=== PATIENT | female | born 1970 | race Caucasian/White ===

== ENCOUNTER → 2016-06-30 | Outpatient (CLI) | payer BC ==
[~2016-06-30] MED LIST: ACET-1256 PO; ALBU1AER9 INH; CLON0.5T3 PO; FLUO0.05 TOP; MULT-506 PO; OMEG10007 PO; SODITAB PO
--- NOTE | 2016-06-30 16:25 | MAMMOGRAPHY REPORT ---
BILATERAL DIGITAL SCREENING MAMMOGRAM TOMOSYNTHESIS WITH CAD: 06/30/2016 CLINICAL HISTORY: Routine screening. Patient has no complaints. TECHNIQUE: Breast tomosynthesis in addition to standard 2D mammography was performed. Current study was also evaluated with a Computer Aided Detection (CAD) system. COMPARISON: Comparison is made to exams dated: 06/27/2015 mammogram, 07/12/2014 mammogram, 06/26/2014 m ammogram, 07/05/2013 mammogram, 06/24/2013 mammogram, and 06/23/2012 mammogram - [facility] nt. BREAST COMPOSITION: The tissue of both breasts is heterogeneously dense, which may obscure small ma sses. FINDINGS: No suspicious masses, calcifications, or areas of architectural distortion are noted in e ither breast. There has been no significant interval change compared to prior exams. There are fluc tuating circumscribed masses throughout the left breast, most likely fluctuating cysts given that cy sts have been seen on prior ultrasound exams. Bilateral benign-appearing calcifications are not sig nificantly changed. IMPRESSION: ACR BI-RADS CATEGORY 2: BENIGN There is no mammographic evidence of malignancy. A 1 year screening mammogram is recommended. The p atient will receive written notification of the results. Approximately 10% of breast cancers are not detected with mammography. A negative mammographic repor t should not delay biopsy if a clinically suggestive mass is present. Rica Choudhury M.D. /:06/30/2016 14:56:55 Pretzel Twisting Machine Operator: Melissa Santamaria, [facility] letter sent: Normal 1/2 BI-RADS Code: ACR BI-RADS Category 2: Benign
== END | disposition home or self-care (01) ==
LOC: C.MAMM 08:42
PROVIDERS: ATTEND Obstetrics & Gynecology
DX: Z12.31 Encounter for screening mammogram for malignant neoplasm of breast (principal)

== ENCOUNTER → 2017-07-01 | Outpatient (CLI) | payer OTHER ==
[~2017-07-01] MED LIST changes: +FLUO0.0566 TOP
--- NOTE | 2017-07-01 15:21 | MAMMOGRAPHY REPORT ---
BILATERAL DIGITAL SCREENING MAMMOGRAM TOMOSYNTHESIS WITH CAD: 07/01/2017 CLINICAL HISTORY: Routine screening. Patient reported a new lump in the left breast that she noticed approximately 3 weeks ago. A triangle marker was placed overlying this palpable concern prior to ma mmography. TECHNIQUE: Bilateral breast tomosynthesis in addition to standard 2D mammography was performed. Curr ent study was also evaluated with a Computer Aided Detection (CAD) system. COMPARISON: Comparison is made to exams dated: 06/27/2015 mammogram, 07/12/2014 mammogram, 06/26/2014 ma mmogram, 07/05/2013 ultrasound, 07/05/2013 mammogram, and 06/23/2012 mammogram - [facility] nter. BREAST COMPOSITION: The tissue of both breasts is heterogeneously dense, which may obscure small mas ses. FINDINGS: A tracheal marker overlies the 6:00 middle to anterior left breast, denoting the palpable lump pointed out by the patient. There is nodularity in the area of concern and therefore additional spot compression tomosynthesis views and possible ultrasound are recommended. A second nodular asym metry is identified in the superior posterior left breast on the MLO view, measuring 8.7 mm. Additio nal spot compression tomosynthesis views, including an exaggerated lateral CC view with possible ultr asound are also recommended for this second area. There are stable benign-appearing scattered and grouped calcifications in the right breast. No other suspicious masses, new calcifications, areas of architectural distortion or asymmetries are seen. IMPRESSION: ACR BI-RADS CATEGORY 0: INCOMPLETE EVALUATION: NEED ADDITIONAL IMAGING EVALUATION The palpable concern in the 6:00 left breast and nodular asymmetry in the superior posterior left fidel ast need additional imaging evaluation. The patient will be called to schedule an appointment. Approximately 10% of breast cancers are not detected with mammography. A negative mammographic report should not delay biopsy if a clinically suggestive mass is present. Jade Rob M.D. ay/:07/01/2017 11:10:26 Garment Mender: Keiry QUILES)(Lauren), [facility] letter sent: Addl Imaging 0 BI-RADS Code: ACR BI-RADS Category 0: Incomplete Evaluation: Need Additional Imaging Evaluation
== END | disposition home or self-care (01) ==
LOC: C.MAMM 08:38
PROVIDERS: ATTEND Obstetrics & Gynecology
DX: Z12.31 Encounter for screening mammogram for malignant neoplasm of breast (principal); N64.89 Other specified disorders of breast

== ENCOUNTER → 2017-07-06 | Outpatient (CLI) | payer OTHER ==
[~2017-07-06] MED LIST changes: -FLUO0.0566 TOP
--- NOTE | 2017-07-07 15:24 | MAMMOGRAPHY REPORT ---
UNILATERAL LEFT DIGITAL DIAGNOSTIC MAMMOGRAM TOMOSYNTHESIS AND TARGETED LEFT ULTRASOUND: 07/06/2017 CLINICAL HISTORY: 46-year-old woman called back from recent screening mammogram to further assess for a newly reported palpable lump in the 6:00 left breast, and also for a newly visualized nodular asym metry in the superior posterior left breast on the MLO view. TECHNIQUE: Spot compression left CC and MLO 2-D and tomosynthesis images were obtained. COMPARISON: Comparison is made to exams dated: 07/01/2017 mammogram, 06/30/2016 mammogram, 06/27/2015 m ammogram, 06/26/2014 mammogram, 06/24/2013 mammogram, and 06/23/2012 mammogram - [facility]. BREAST COMPOSITION: The tissue of the left breast is heterogeneously dense, which may obscure small masses. FINDINGS: The additional spot compression views of the left breast demonstrate a persistent partiall y circumscribed, 6.6 x 6.4 mm mass in the upper outer posterior left breast. No associated net application architect ural distortion or calcification. Further evaluation with ultrasound was performed. There is nodula rity in the medial left breast approximate 8:00 to 9:00 axes, for which further evaluation with ultra sound was performed. No other definite mass, focal area of architectural distortion or asymmetry is seen. Targeted ultrasound was performed in the left breast with particular attention to the area of lump po inted out by the patient, the left lower inner quadrant and left upper outer quadrant. Today, the pa tient reports the lump has decreased in size and is less prominent than when she first noticed it dillon roximately 3 weeks ago. On ultrasound in the 6:00 periareolar left breast in the area of prior edy rn, there is an oval parallel circumscribed nearly anechoic cystic appearing mass measuring 3.3 x 2.1 mm. This most likely represent a collapsing cyst, which could explain the less prominent nature of the patient's palpable concern. A grouping of several cysts are identified in the 9:00 left breast, 2 cm from the nipple, the largest of which measures 3 mm. No suspicious solid mass is identified. I n the 1:00 left breast, 8 cm from the nipple, there is an oval parallel circumscribed anechoic benign simple cyst with posterior acoustic enhancement, measuring 7.0 x 4.1 x 7.2 mm. This correlates with the mammographic nodular asymmetry and is benign. Incidentally seen while scanning the left upper o uter quadrant is a possible collapsing cyst in the 2:00 axis, 2 cm from the nipple, measuring 3.2 x 3 .1 x 4.4 mm. However this does not have completely circumscribed borders and therefore a short inter jeanette follow-up targeted ultrasound is recommended to ensure stability in 6 months. IMPRESSION: ACR-BI-RADS CATEGORY 3: PROBABLY BENIGN, TARGETED ULTRASOUND ACR-BI-RADS CATEGORY 3: PRO BABLY BENIGN 1. There are scattered cysts seen throughout the left breast on targeted ultrasound. A probable col lapsing cyst is identified in the 6:00 periareolar breast, which is located in the area of previously noted palpable lump pointed out by the patient. However, continued clinical follow-up is recommende d, as biopsy of a clinically suspicious mass should not be precluded by negative imaging. This area can also be reassessed at time of follow-up in 6 months. 2. There are scattered cysts compatible with fibrocystic changes most numerous in the 9:[address] and upper outer quadrant of the left breast. A benign anechoic simple cysts correlates with the m ammographic nodular asymmetry in the left upper outer quadrant posteriorly. This is benign and no fu rther follow-up is needed. 3. However, incidentally identified is an indeterminate hypoechoic mass in the 2:00 left breast, 2 c m from the nipple, that probably represents an additional collapsing cyst, although does not meet all of the imaging criteria for a benign simple cyst. Therefore, a short interval follow-up targeted le ft breast ultrasound and diagnostic tomosynthesis mammogram is recommended to ensure stability in 6 m onths. These results and recommendations were discussed with the patient at the time of the exam. Approximately 10% of breast cancers are not detected with mammography. A negative mammographic report should not delay biopsy if a clinically suggestive mass is present. Jade Rob M.D. ay/:07/06/2017 15:32:44 Professor Of Biostatistics: Abida Lozada RT(Jacqueline)(M), [facility] letter sent: Follow Up Recommended 3 BI-RADS Code: ACR-BI-RADS Category 3: Probably Benign Ultrasound BI-RADS: ACR-BI-RADS Category 3: Pr obably Benign
== END | disposition home or self-care (01) ==
LOC: C.MAMM 13:50
PROVIDERS: ATTEND Obstetrics & Gynecology
DX: N60.02 Solitary cyst of left breast (principal); N64.89 Other specified disorders of breast

== ENCOUNTER → 2017-09-09 | Day surgery (SDC) | payer OTHER ==
[2017-08-27 08:28] VITALS: BMI 22.0
[~2017-09-09] VITALS: Ht 167.6 cm; Wt 62.7 kg
[~2017-09-09] MED LIST changes: -ACET-1256 PO; -ALBU1AER9 INH; -CLON0.5T3 PO; +DiphenhydrAMINE HCL 50 MG/ML VIAL ONE; -FLUO0.05 TOP; +FLUO0.0566 TOP; +LIDOCAINE HCL 2% 2 ML VIAL (20MG/ML) ONE; +ONDANSETRON INJ 2 MG/ML 2 ML VIAL ONE; +PROPOFOL IV EMULSION 10 MG/ML 20 ML VIAL IV ONE; -SODITAB PO; +SODIUM CHLORIDE 0.9% 500ML 500 ML IV ONE
[2017-09-09 14:38] VITALS: Ht 167.6 cm; Wt 62.7 kg
--- NOTE | 2017-09-09 14:53 | Endo History and Physical ---
History & Physical Date of Service: Sep 09, 2017. Chief Complaint: BLOOD IN STOOL Referring Physician: DR ALICEA History of Present Illness 46 yo CF who presents for colonoscopy secondary to blood in stool. Past Medical History Asthma Past Surgical History Hx Cardiac Surgery: No Hx Internal Defibrillator: No Hx Pacemaker: No Hx Abdominal Surgery: Yes (HYSTERECTOMY) Hx of Implantable Prosthesis: No Hx Post-Op Nausea and Vomiting: Yes (SEVERE PONV) Hx Cancer Surgery: No Hx Thoracic Surgery: No Hx Orthopedic: Yes (LEFT SHOULDER RECONSTRUCTION, RT SHOULDER/KNEE ARTHROSCOPY) Hx Urinary Tract Surgery: No Family History IBD Social History Smoking Status: Never Smoker Hx Substance Use: No Hx Alcohol Use: No Allergies Coded Allergies: Venlafaxine (Verified Allergy, Unknown, HEART ARRYHTHMIA, 09/09/17) Serotonin Reuptake Inhibitors (Verified Adverse Reaction, Unknown, SEROTONIN SYNDROME, 08/27/17) Current Medications Reported Home Medications Medications Dose Route/Sig Max Daily Dose Days Date Category [place]-3 (Fish Oil) 1 Ea Cap 1 Cap PO DAILY 08/27/17 Reported Multivitamin (Multivitamins) Tab 1 Tab PO DAILY 08/27/17 Reported Fluocinonide 0.05 % Sharla 1 Appln TOP DAILY PRN 08/27/17 Reported Vital Signs Weight (Kilograms): 62.73 Height (Feet): 5 Height (Inches): 6 Date Time Temp Pulse Resp B/P (MAP) Pulse Ox O2 Delivery O2 Flow Rate FiO2 09/09/17 14:37 36.8 64 20 101/58 (72) 100 Room Air Physical Exam General Appearance: WD/WN, no apparent distress Respiratory/Chest: Auscultation: breath sounds normal Cardiovascular: Heart Auscultation: RRR Abdomen: Bowel Sounds: normal Inspection & Palpation: soft, non-distended, no tenderness, guarding & rebound Assessment and Plan Assessment: 46 yo CF who presents for colonoscopy secondary to blood in stool. Plan: Proceed with colonoscopy.
--- NOTE | 2017-09-09 16:11 | Discharge Instructions ---
Endoscopy Patient Instructions Date / Procedure(s) Performed Sep 09, 2017. Colonoscopy Allergy Information Coded Allergies: Venlafaxine (Verified Allergy, Unknown, HEART ARRYHTHMIA, 09/09/17) Serotonin Reuptake Inhibitors (Verified Adverse Reaction, Unknown, SEROTONIN SYNDROME, 08/27/17) Discharge Date / Findings Sep 09, 2017. Colon polyps Internal hemorrhoids Medication Instructions OK to resume all medications today as prescribed Reported Home Medications Medications Dose Route/Sig Max Daily Dose Days Date Category [place]-3 (Fish Oil) 1 Ea Cap 1 Cap PO DAILY 08/27/17 Reported Multivitamin (Multivitamins) Tab 1 Tab PO DAILY 08/27/17 Reported Fluocinonide 0.05 % Sharla 1 Appln TOP DAILY PRN 08/27/17 Reported Provider Instructions Activity Restrictions - No exercising or heavy lifting for 24 hours. - Do not drink alcohol the day of the procedure. - Do not drive a car or operate machinery until the day after the procedure. - Do not make any important decisions or sign important papers in 24 hours after the procedure. Following Day: - Return to full activity which may include returning to work/school. Diet Start your diet with liquids and light foods (jello, soup, juice, toast). Then eat your usual diet if not nauseated. Treatment For Common After Affects For mild abdominal pain, bloating, or excessive gas: - Rest - Eat lightly - Lie on right side Follow-Up Information Follow-up with DR ALICEA as scheduled Anesthesia Information What You Should Know You have had a procedure that required some medicine to reduce anxiety and discomfort. This treatment is called moderate sedation. After receiving the treatment, you may be sleepy, but you will be able to breathe on your own. The effects of the treatment may last for several hours. Follow these instructions along with Activity/Diet recommendations noted above: * Do NOT do anything where dizziness or clumsiness would be dangerous. * Rest quietly at home today, then you can be up and about tomorrow. * Have a responsible person stay with you the rest of today. * You may have had an I.V. today. If so, you may take the dressing off later today. Recommendations Call your doctor if: * Trouble breathing * Continuous vomiting for more than 24 hours * Temperature above 101 degrees * Severe abdominal pain or bloating * Pain not relieved by pain medicine ordered * There is increased drainage or redness from any incision * A large amount of rectal bleeding greater than 2-3 tablespoons. (If you had a polyp/s removed or have hemorrhoids, a small amount of blood - from the rectum is to be expected.) * You have any unanswered questions or concerns. IN THE EVENT OF A SERIOUS EMERGENCY, GO TO THE NEAREST EMERGENCY ROOM Your discharge instructions were prepared by provider Cesar Wolfe. Patient Instructions Signature Page Mary Garcia Patient (or Guardian) Signature/Date: I have read and understand the instructions given to me by my caregivers. Caregiver/RN/Doctor Signature/Date: The above-named patient and/or guardian has received patient instructions on this date. + Original Patient Signature Page (only) stays with chart. Please make copy for patient.
--- NOTE | 2017-09-09 16:34 | Anesthesiology Progress Note ---
Anesthesia Post Op Note Date & Time Sep 09, 2017 at 16:34 Vital Signs Pain Intensity: 0 Vital Signs Past 12 Hours Date Time Temp Pulse Resp B/P (MAP) Pulse Ox O2 Delivery O2 Flow Rate FiO2 09/09/17 16:18 64 18 97/62 (74) 100 Room Air 09/09/17 16:03 36.0 64 16 105/63 (77) 100 Room Air 09/09/17 14:37 36.8 64 20 101/58 (72) 100 Room Air Notes Mental Status: alert / awake / arousable, participated in evaluation Pt Amnestic to Procedure: Yes Nausea / Vomiting: adequately controlled Pain: adequately controlled Airway Patency, RR, SpO2: stable & adequate BP & HR: stable & adequate Hydration State: stable & adequate Anesthetic Complications: no major complications apparent
[2017-09-09 16:35] VITALS: BP 103/59; PULSE 64; O2SAT 100
--- NOTE | 2017-09-10 11:34 | GI REPORT ---
Patient Name: Mary Garcia Procedure Date: 09/09/2017 3:01 PM Date of : 1970 Admit Type: Outpatient Age: 46 Gender: Female Attending MD: Cesar Wolfe DO Procedure: Colonoscopy Providers: Cesar Wolfe DO Referring MD: Rosana Sun Indications: Rectal bleeding Medicines: Monitored Anesthesia Care Complications: No immediate complications. Estimated Blood Loss: Estimated blood loss: none. Procedure: Pre-Anesthesia Assessment: - Prior to the procedure, a History and Physical was performed, and patient medications and allergies were reviewed. The patient's tolerance of previous anesthesia was also reviewed. The risks and benefits of the procedure and the sedation options and risks were discussed with the patient. All questions were answered, and informed consent was obtained. Prior Anticoagulants: The patient has taken no previous anticoagulant or antiplatelet agents. ASA Grade Assessment: II - A patient with mild systemic disease. After reviewing the risks and benefits, the patient was deemed in satisfactory condition to undergo the procedure. After I obtained informed consent, the scope was passed under direct vision. Throughout the procedure, the patient's blood pressure, pulse, and oxygen saturations were monitored continuously. The Scope was introduced through the anus and advanced to the terminal ileum. The colonoscopy was performed without difficulty. The patient tolerated the procedure well. The quality of the bowel preparation was good. The terminal ileum, ileocecal valve, appendiceal orifice, and rectum were photographed. Findings: The perianal and digital rectal examinations were normal. Two sessile polyps were found in the descending colon. The polyps were 3 to 4 mm in size. These polyps were removed with a cold snare. Resection and retrieval were complete. Non-bleeding internal hemorrhoids were found during retroflexion. The hemorrhoids were medium-sized. Impression: - Two 3 to 4 mm polyps in the descending colon, removed with a cold snare. Resected and retrieved. - Non-bleeding internal hemorrhoids. Recommendation: - Resume previous diet. - Continue present medications. - Repeat colonoscopy for surveillance based on pathology results. - Return to primary care physician as previously scheduled. Cesar Wolfe DO 09/09/2017 4:09:47 PM This report has been signed electronically. Note Initiated On: 09/09/2017 3:01 PM Number of Addenda: 0 I attest to the content of the Intraoperative Record and orders documented therein, exceptions below {[id number]}
== END | disposition home or self-care (01) ==
LOC: C.GI 13:35
PROVIDERS: ATTEND Internal Medicine
DX: K92.1 Melena (principal); D12.4 Benign neoplasm of descending colon; K64.8 Other hemorrhoids; F32.9 Major depressive disorder, single episode, unspecified; J45.909 Unspecified asthma, uncomplicated; Z90.710 Acquired absence of both cervix and uterus

== ENCOUNTER → 2018-01-04 | Outpatient (CLI) | payer OTHER ==
[~2018-01-04] MED LIST changes: -DiphenhydrAMINE HCL 50 MG/ML VIAL ONE; -LIDOCAINE HCL 2% 2 ML VIAL (20MG/ML) ONE; -ONDANSETRON INJ 2 MG/ML 2 ML VIAL ONE; -PROPOFOL IV EMULSION 10 MG/ML 20 ML VIAL IV ONE; -SODIUM CHLORIDE 0.9% 500ML 500 ML IV ONE
--- NOTE | 2018-01-05 06:59 | MAMMOGRAPHY REPORT ---
UNILATERAL LEFT DIGITAL DIAGNOSTIC MAMMOGRAM TOMOSYNTHESIS WITH CAD AND TARGETED LEFT ULTRASOUND: 12/17 CLINICAL HISTORY: 47-year-old woman presents for follow-up evaluation of the left breast for mammogra phic masses and scattered cysts seen on ultrasound. TECHNIQUE: Left breast CC and MLO 2D and tomosynthesis images, spot magnification left CC and ML view s were obtained. Current study was also evaluated with a Computer Aided Detection (CAD) system. COMPARISON: Comparison is made to exams dated: 07/06/2017 mammogram, 07/01/2017 mammogram, 06/30/2016 m ammogram, 06/27/2015 mammogram, 07/12/2014 mammogram, and 06/26/2014 mammogram - [facility]. BREAST COMPOSITION: There are scattered areas of fibroglandular density in left breast. FINDINGS: There is increasingly prominent 9 mm focal asymmetry in the upper outer posterior left paco st. An oval circumscribed anechoic benign simple cyst was previously seen in the 1:00 left breast on targeted ultrasound but given the increased prominence, further evaluation with ultrasound was perfo rmed. There is decreased nodularity in the medial left breast with a possible persistent oval 6 mm m ass in the middle one third of the left breast, along the posterior nipple line on the CC view. No n ew areas of asymmetries or architectural distortion are seen. However, there are possible clusters o f calcifications in the left breast along the posterior nipple line on the CC view for which addition al spot magnification views were performed. The spot magnification views of the left breast demonstrate multiple similar appearing clusters of pu nctate and amorphous microcalcifications, at least 6 distinct clusters are identified, none of which demonstrate definitive layering on the spot magnification ML view to confirm benign milk of calcium. When comparing back to prior available mammograms, these were likely present dating back to 2016 but are increasingly conspicuous. Although they most likely represent benign fibrocystic change, a shor t interval follow-up left diagnostic mammogram including spot magnification views is recommended to e nsure stability in 6 months. Targeted ultrasound was performed in the left breast 6:00, 2:00 and 1:00 axes. In the 6:[address], a small anechoic cystic-appearing mass is no longer seen, confirming a benign resolving cyst this is concordant with the patient's clinical history of no longer palpable lesion in this area. In the 1:00 left breast, 8 cm from the nipple there are 2 abutting anechoic benign cyst. The slightly larg er over parallel circumscribed anechoic cyst was previously seen and now it is slightly larger, measu ring 7.5 x 5.0 x 8.2 mm. The new, second smaller anechoic cyst located superficial to the first juwan ures 3.5 x 2.8 x 3.0 mm, and this likely explains the increased mammographic prominence. In the 2:00 left breast, 2 cm from the nipple, there is an oval circumscribed hypoechoic solid versus cystic mas s measuring 4.7 x 3.9 x 2.6 mm. a smaller more superficial anechoic oval circumscribed benign cyst is identified in the left 2:00 axis, 2 cm from the nipple, measuring 4.8 x 2.0 mm. 2 small tiny anecho ic cysts are seen in the 9:00 left breast, 2 cm from the nipple, measuring 2.5 and 2.3 mm. These are decreased comparing to the prior ultrasound. IMPRESSION: ACR-BI-RADS CATEGORY 3: PROBABLY BENIGN, ULTRASOUND ACR-BI-RADS CATEGORY 3: PROBABLY OCTAVIA GN 1. Fluctuating nodularity pattern in the left breast with decreased nodularity in the 9:00 and 6:00 left breast but increasingly prominent focal asymmetry versus mass in the 1:00 left breast. The 1:00 increased prominence is due to a new anechoic benign cyst adjacent to a previously observed oval ane choic benign cyst in the 1:00 left breast, 8 cm from the nipple on targeted ultrasound. 2. A sonographic oval circumscribed hypoechoic mass in the 2:00 left breast, 2 cm from the nipple ap pears generally stable, given slight differences in measuring angle. Another six-month follow-up tar geted left breast ultrasound is recommended to ensure longer stability. 3. Multiple, at least 6 similar appearing groupings of faint punctate/amorphous microcalcifications are identified in the left breast, middle and anterior one third of the breast, which have likely bee n present dating back to 2016 and most likely represent benign fibrocystic change given the numerous nature and similar appearance. However, a short interval follow-up left diagnostic mammogram includi ng repeat spot magnification views is recommended to ensure stability in 6 months. Annual right mamm ography will also be due at that time. These results and recommendations were discussed with the patient at the time of the exam. Some breast cancers are not detected with mammography. A negative mammographic report should not lorenzo y biopsy if a clinically suggestive mass is present. Jade Rob M.D. ay/:01/04/2018 14:02:33 Rubber Tile Floor Layer: Melissa Santamaria, [facility]; Jade Rob, [facility] letter sent: Follow Up Recommended 3 OVERALL STUDY BIRADS: 3 Probably benign
== END | disposition home or self-care (01) ==
LOC: C.MAMM 08:06
PROVIDERS: ATTEND Obstetrics & Gynecology
DX: N63.21 Unspecified lump in the left breast, upper outer quadrant (principal); R92.0 Mammographic microcalcification found on diagnostic imaging of breast; N60.02 Solitary cyst of left breast

== ENCOUNTER 2021-12-17 18:34 | Inpatient (IN) ==
[2021-12-17] MEDS ORDERED: SODIUM CHLORIDE 0.9% 1000ML 1,000 ML IV STA (22:22)
[2021-12-17] MEDS ORDERED: MoRPHine SULFATE 4 MG/ML 1 ML CARP\\VIAL IV STA (22:22)
[2021-12-17] MEDS ORDERED: ONDANSETRON INJ 2 MG/ML 2 ML VIAL IV STA (22:22)
[2021-12-17 22:53] LABS: iSTAT Creatinine 0.6 mg/dl (0.6-1.3); iSTAT Hemoglobin 14.3 g/dl (12.0-16.0); iSTAT Ionized Calcium 1.18 mmol/l (1.12-1.32); iSTAT Potassium 3.3 mmol/L (3.3-5.0)
[2021-12-17 22:58] LABS: Basophils # (auto) 0.03 K/uL (0-0.2); Basophils % (auto) 0.3 %; Eosinophils # (auto) 0.11 K/uL (0-0.50); Hemoglobin 13.6 g/dl (12.0-16.0); Immature Granulocytes # (auto) 0.04 K/uL (0.00-0.02); Immature Granulocytes % (auto) 0.4 %; Lymphocytes # (auto) 1.44 K/uL (1.2-3.4); Lymphocytes % (auto) 13.5 %; Mean Corpuscular Hemoglobin 29.9 pg (25.0-34.0); Mean Corpuscular Hgb Conc 33.2 g/dL (32.0-36.0); Mean Corpuscular Volume 90.1 fL (80.0-100.0); Mean Platelet Volume 10.3 fL (9.4-12.3); Monocytes # (auto) 0.45 K/uL (0.24-0.82); Monocytes % (auto) 4.2 %; Neutrophils # (auto) 8.62 K/uL (1.4-6.5); Neutrophils % (auto) 80.6 %; Platelet Count 286 K/uL (130-400); RDW Coefficient of Variation 11.9 % (11.5-14.5); RDW Standard Deviation 39.5 fL (36.4-46.3); Red Blood Count 4.55 M/uL (3.93-5.22); White Blood Count 10.69 K/ul (4.8-10.8)
[2021-12-17 23:13] LABS: Albumin Globulin Ratio 1.4 (0.9-2); Albumin Level 4.4 gm/dl (3.4-5.0); BUN Creatinine Ratio 12.9 (10-20); Bilirubin,Total 0.5 mg/dl (0.2-1.0); Calcium 9.1 mg/dl (8.5-10.1); Creatinine Clr Calc Pharmacy 96.6 ml/min; Est GFR (Non-African American) 104.4 ml/min; Globulin 3.1 gm/dl (2.5-4.0); Potassium 3.3 mmol/L (3.5-5.1); Total Protein 7.5 gm/dl (6.0-8.3)
[2021-12-17] MEDS ORDERED: OPTIRAY 320 100ml IV ONE (23:22)
--- NOTE | 2021-12-17 23:38 | Emergency Department Note ---
History of Present Illness General Chief complaint: Abdominal Pain Stated complaint: ABDOMINAL PAIN Time Seen by Provider: 12/17/21 22:17 History of Present Illness Maximum Pain Intensity: 10 This 51-year-old with history of hysterectomy presents to the ER complaining of abdominal pain Location: mid abdomen Quality: Painful Severity: Moderate Duration: Today Timing: Today Context: Patient was in pain and came in Modifying factors: better with rest; worse with activity patient denies chest pain, dyspnea, fevers, urinary symptoms, prior similar symptoms. Patient finished Paxlovid 2 days ago for [employer]. She is a week out from [employer]. Home Medications Medication Instructions Recorded Confirmed Type multivitamin (Daily Multi-Vitamin) 1 tab PO QAM 12/06/19 12/17/21 History omega 5-uko-smu-fish oil 1,000 mg 1 cap PO DAILY 09/12/21 12/17/21 History (120 mg-180 mg) capsule (Fish Oil) clonazepam 0.5 mg tablet 0.5 mg PO DAILY PRN Anxiety #30 10/10/21 12/17/21 Rx tabs epinephrine 0.3 mg/0.3 mL 0.3 mg (0.3 mL) IM Q4H PRN 10/28/21 12/17/21 Rx injection, auto-injector anaphylaxis #1 ea acetaminophen 500 mg tablet 1,000 mg PO DIRECTED PRN 12/17/21 12/17/21 History (Tylenol Extra Strength) FEVER/PAIN famotidine 20 mg tablet 20 mg PO BID PRN Indigestion 12/17/21 12/17/21 History fluticasone propionate 50 See Rx Instructions intranasal BID 12/17/21 12/17/21 History mcg/actuation nasal PRN ALLERGY SEASON spray,suspension (Flonase Allergy Relief) Allergies Allergy/AdvReac Type Severity Reaction Status Date / Time bee venom protein (honey bee) Allergy Severe SWELLING Verified 12/17/21 23:35 clarithromycin [From Biaxin] AdvReac Intermediate elevated Verified 12/17/21 23:35 LFTs lactase [From Dairy Aid] AdvReac Intermediate Gastrointestinal Verified 12/17/21 23:35 Upset Serotonin 5HT-3 Antagonists AdvReac Intermediate SEROTONIN Verified 12/17/21 23:35 SYNDROME venlafaxine AdvReac Intermediate HEART Verified 12/17/21 23:35 ARRYHTHMIA Past Med/Surg History Medical History Anxiety Family history of gastric cancer History of colon polyps History of endometriosis PONV (postoperative nausea and vomiting) Surgical History History of arthroscopy of left shoulder History of arthroscopy of right knee History of colonoscopy History of hysteroscopy History of wisdom tooth extraction Hx of hysterectomy S/P correction of deviated nasal septum Family History Father Deafness Hypertension Cancer Gastric Mother Sinusitis Cancer Slow to wake up after anesthesia Grandfather (Paternal) Colon cancer Denies family history of Ovarian cancer Prostate cancer Myocardial infarction Breast cancer Colorectal cancer Social History Smoking Status: Never smoker Second Hand Exposure: No; Hx Alcohol Use: No Hx Substance Use: No Preferred Language: Yoruba Communication Ability: Effective Visual Impairment: No Limitations Hearing Ability: Normal 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 Beliefs That Will Affect Care: None marital status: Current Living Situation: Spouse current occupational status: employed current occupation: self employed How many Children do You have: 0 Feels Safe at Home: Yes Childhood Exposure to Second-Hand Smoke: No Dental Care, Regularly: Yes Physical Activity Frequency: Daily Seatbelt Use: always Sunscreen Use: Yes Assistive Devices: Glasses Review of Systems A total of 10 systems reviewed and were otherwise negative Physical Exam Vital Signs Vital Signs - 24 hr 12/17/21 18:57 12/17/21 22:40 12/17/21 22:43 Temperature 37 C Temperature Source Temporal Artery Scan Pulse Rate 78 Pulse Rate [Apical] 66 Respiratory Rate 18 18 Respiratory Effort / Characteristics Spontaneous Other Respiratory Depth Normal Blood Pressure 96/51 L Blood Pressure [Left Arm] 105/67 Blood Pressure Mean 66 Blood Pressure Mean [Left Arm] 79 Pulse Oximetry 93 98 96 Oxygen Delivery Method Room Air Room Air Room Air Sepsis Recent Fever Within 48 Hours No Sepsis New/Unexplained Change in Mental Status No Sepsis Action Taken by Nursing No Action Required VITALS: Vitals are noted on the nurse's note and reviewed by myself. Vital signs stable. GENERAL: Pleasant female who appears in pain, in no acute distress, nondiaphoretic, well-developed well-nourished. SKIN: The skin was without rashes, erythema, edema, or bruising. There is no tenting of the skin. Capillary reflex less than 2 seconds. HEAD: Normocephalic atraumatic. EARS: External auditory canals clear, EYES: Pupils equal round and reactive to light and accommodation. Conjunctivae without injection, sclerae without icterus. Extraocular movements intact. NOSE: Patent, turbinates without inflammation or discharge. MOUTH: Mucous membranes moist. Pharynx without erythema or exudate. Uvula midline. Airway patent. Tongue does not deviate. NECK: Supple without nuchal rigidity. No lymphadenopathy. No thyromegaly. Cervical spine is nontender. No JVD. HEART: Regular rate and rhythm LUNGS: Clear to auscultation bilaterally without wheezes, rales or rhonchi. No retractions or accessory muscle use. ABDOMEN: Positive bowel sounds x 4. Normal tympanic percussion. Soft, tender mid abdomen, without masses or organomegaly. Masters sign negative. No guarding or rebound tenderness. No CVA tenderness MUSCULOSKELETAL: No muscle atrophy, erythema, or edema noted. NEURO: Patient was alert and oriented to person place and time. Normal sensation to light and sharp touch. No focal neurological deficits. Course Administered Medications Discontinued Medications Sodium Chloride (Nss 1000ml) 1,000 mls @ 999 mls/hr IV .Q1H1M STA Stop: 12/17/21 23:22 Last Admin: 12/17/21 22:37 Dose: 999 mls/hr Documented By: AGUSTO Ioversol (Optiray 320 100ml) 92 ml IV ONCE ONE Stop: 12/17/21 23:23 Last Admin: 12/17/21 23:25 Dose: 92 ml Documented By: NIKKY Morphine Sulfate (Morphine Sulfate 4 Mg/Ml 1 Ml Carp\Vial) 4 mg IV NOW STA Stop: 12/17/21 22:23 Last Admin: 12/17/21 22:37 Dose: 4 mg Documented By: AGUSTO Morphine Sulfate (Morphine Sulfate 4 Mg/Ml 1 Ml Carp\Vial) 4 mg IV NOW STA Stop: 12/18/21 00:09 Last Admin: 12/18/21 00:13 Dose: 4 mg Documented By: MULUGETA Ondansetron HCl (Ondansetron Inj 2 Mg/Ml 2 Ml Vial) 4 mg IV NOW STA Stop: 12/17/21 22:23 Last Admin: 12/17/21 22:37 Dose: 4 mg Documented By: AGUSTO Medical Decision Making Medical Records Attestation: I reviewed the patient's medical records. Home Medications Current Medication List: was personally reviewed by me Laboratory Data Attestation: I reviewed the patient's lab results. Result diagrams: 12/17/21 22:30 12/17/21 22:30 Lab Results 12/17/21 12/17/21 12/17/21 Range/Units 22:30 22:30 22:41 WBC 10.69 (4.8-10.8) K/ul RBC 4.55 (3.93-5.22) M/uL Hgb 13.6 (12.0-16.0) g/dl POC Hgb 14.3 (12.0-16.0) g/dl Hct 41.0 (34.1-44.9) % POC Hct 42 (37-47) % MCV 90.1 (80.0-100.0) fL MCH 29.9 (25.0-34.0) pg MCHC 33.2 (32.0-36.0) g/dL RDW Std Deviation 39.5 (36.4-46.3) fL RDW Coeff of Claudette 11.9 (11.5-14.5) % Plt Count 286 (130-400) K/uL MPV 10.3 (9.4-12.3) fL Immature Gran % (Auto) 0.4 % Neut % (Auto) 80.6 % Lymph % (Auto) 13.5 % [place] % (Auto) 4.2 % Eos % (Auto) 1.0 % Baso % (Auto) 0.3 % Neut # (Auto) 8.62 H (1.4-6.5) K/uL Lymph # (Auto) 1.44 (1.2-3.4) K/uL [place] # (Auto) 0.45 (0.24-0.82) K/uL Eos # (Auto) 0.11 (0-0.50) K/uL Baso # (Auto) 0.03 (0-0.2) K/uL Immature Gran # (Auto) 0.04 H (0.00-0.02) K/uL POC Sodium 142 (135-144) mmol/L Sodium 139 (136-145) mmol/L POC Potassium 3.3 (3.3-5.0) mmol/L Potassium 3.3 L (3.5-5.1) mmol/L POC Chloride 103 (101-112) mmol/L Chloride 103 (98-107) mmol/L Carbon Dioxide 28 (21-32) mmol/L POC Total CO2 28 (24-31) mmol/L Anion Gap 8 (3-11) POC Anion Gap 15.0 L (16-25) mmol/L POC BUN 7 (7-18) mg/dl BUN 8 (6-23) mg/dl Creatinine 0.62 (0.6-1.2) mg/dl POC Creatinine 0.6 (0.6-1.3) mg/dl Est Cr Clr Drug Dosing 96.6 ml/min Est GFR ( Amer) 121.0 ml/min Est GFR (Non-Af Amer) 104.4 ml/min BUN/Creatinine Ratio 12.9 (10-20) Glucose 120 H (70-99(Fasting)) mg/dl POC Glucose (other) 125 H (70-99) mg/dl Calcium 9.1 (8.5-10.1) mg/dl POC Ioniz Calcium Panda 1.18 (1.12-1.32) mmol/l Total Bilirubin 0.5 (0.2-1.0) mg/dl AST 19 (13-39) U/L ALT 16 (7-52) U/L Alkaline Phosphatase 67 (34-104) U/L Total Protein 7.5 (6.0-8.3) gm/dl Albumin 4.4 (3.4-5.0) gm/dl Globulin 3.1 (2.5-4.0) gm/dl Albumin/Globulin Ratio 1.4 (0.9-2) Lipase 10 L (11-82) U/L Imaging Data Attestation: I personally reviewed and interpreted this imaging study as follows: MDM Narrative Prior records/ancillary studies reviewed. Triage Nursing notes reviewed. Additional history obtained from nursing. The patient's history was concerning for abdominal pain. Differential diagnosis: Etiologies such as appendicitis, diverticulitis, PUD, biliary pathology, UTI, pancreatitis, obstruction, mesenteric ischemia, aortic pathology, infections, inflammatory bowel disease, renal colic, as well as others were entertained. Physical examination findings: As above. ER treatment provided: An order was placed for continuous cardiac monitoring. The monitor shows a rate of 60-100 with a sinus rhythm. Fluids Zofran morphine On reassessment the patient felt better. Diagnostics interpreted by me: The labs revealed no worrisome leukocytosis Imaging studies: CT ABDOMEN & PELVIS With Contrast: Dilated small bowel loops measure up to 3.1 cm in the left abdomen with a collapsed appearance of distal loops. Findings compatible with a high-grade small bowel obstruction potentially related to adhesions. Small pelvic fluid is likely associated with the suspected small bowel obstruction Appendix not definitely visualized. If right lower quadrant symptoms are present and oral contrast enhanced study could be performed for further evaluation Radiologist: Skip Garcia MD Consultation: A consultation was placed with the hospitalist. The case was discussed and diagnostics were reviewed. The patient was evaluated in the ER for further treatment. Exam and history seem consistent with small bowel obstruction. Patient has declined NG tube. Medicine was consulted. She will be admitted. By the evaluation outlined above emergent etiologies such as appendicitis, diverticulitis, PUD, biliary pathology, UTI, pancreatitis, mesenteric ischemia, aortic pathology, infections, inflammatory bowel disease, renal colic, as well as others were deemed relatively unlikely. The pt informed about the findings as listed above. All questions were answered and pleased with the treatment. The chart was completed utilizing [employer] Speech voice recognition software. Grammatical errors, random word insertions, pronoun errors, and incomplete sentences are an occassional consequence of this system due to software limitations, ambient noise, and hardware issues. Any formal questions or concerns about the content, text, or information contained within the body of this dictation should be directly addressed to the physician speech therapy assistant for clarification. Impression & Plan SBO (small bowel obstruction) Discharge Plan Visit Data Chief Complaint: Abdominal Pain Stated Complaint: ABDOMINAL PAIN ED Provider: Mitchell Lujan ED Midlevel Provider: Buffy Mancia Discharge Problem: SBO (small bowel obstruction) Patient Disposition: Admitted As Inpatient Condition: Good Forms Stand Alone Forms: [employer] Prescriptions Prescriptions: No Action clonazepam 0.5 mg tablet 0.5 mg PO DAILY PRN (Reason: Anxiety) Qty: 30 0RF epinephrine 0.3 mg/0.3 mL auto-injector 0.3 mg IM Q4H PRN (Reason: anaphylaxis) Qty: 1 0RF omega 5-mom-zjf-fish oil [Fish Oil] 1,000 mg (120 mg-180 mg) capsule 1 cap PO DAILY multivitamin [Daily Multi-Vitamin] Tablet 1 tab PO QAM acetaminophen [Tylenol Extra Strength] 500 mg Tablet 1,000 mg PO DIRECTED PRN (Reason: FEVER/PAIN) famotidine 20 mg tablet 20 mg PO BID PRN (Reason: Indigestion) fluticasone propionate [Flonase Allergy Relief] 50 mcg/actuation spray,suspension See Rx Instructions intranasal BID PRN (Reason: ALLERGY SEASON) Rx Instructions: 1-2 sprays in each nostril twice a day Referrals Referrals: Jeannie Thurman CRNP [Primary Care Provider] -
[2021-12-18] MEDS ORDERED: MoRPHine SULFATE 4 MG/ML 1 ML CARP\\VIAL IV STA ×2 (00:08→02:24)
--- NOTE | 2021-12-18 00:40 | History & Physical Report ---
Date of Service December 18, 2021 Assessment & Plan (1) SBO (small bowel obstruction): Plan: Small bowel obstruction- Per CT, potentially related to adhesions NPO Famotidine 20 mg IV every 12 hours Zofran 4 mg IV every 6 hours as needed Zosyn 4.5 g IV every 8 hours Acetaminophen 1 g IV every 8 hours as needed mild pain or fever (2) Endometriosis: (3) Anxiety: Plan: On clonazepam as outpatient Lorazepam 0.5 mg IV twice daily as needed History of Present Illness Chief Complaint: The patient reports initial development of abdominal pain last week, that was brief and resolved spontaneously, however, over the past few days has had more significant pain and became intense today. Today she is also developed several episodes of nausea and vomiting Primary Care Provider: RICARDO Jolly The patient is a 51-year-old female with a past medical history including colon polyps, Lyme disease, hysterectomy, anxiety and endometriosis. She presents to the emergency department with symptoms as noted above. CT scan of abdomen and pelvis was consistent with a high-grade small bowel obstruction secondary to adhesions. Abnormal laboratories: Potassium 3.3, glucose 120, WBC 10.69 Allergies Allergy/AdvReac Type Severity Reaction Status Date / Time bee venom protein (honey bee) Allergy Severe SWELLING Verified 12/17/21 23:35 clarithromycin [From Biaxin] AdvReac Intermediate elevated Verified 12/17/21 23:35 LFTs lactase [From Dairy Aid] AdvReac Intermediate Gastrointestinal Verified 12/17/21 23:35 Upset Serotonin 5HT-3 Antagonists AdvReac Intermediate SEROTONIN Verified 12/17/21 23:35 SYNDROME venlafaxine AdvReac Intermediate HEART Verified 12/17/21 23:35 ARRYHTHMIA Home Medications Medication Instructions Recorded Confirmed Type multivitamin (Daily Multi-Vitamin) 1 tab PO QAM 12/06/19 12/17/21 History omega 7-ewi-miu-fish oil 1,000 mg 1 cap PO DAILY 09/12/21 12/17/21 History (120 mg-180 mg) capsule (Fish Oil) clonazepam 0.5 mg tablet 0.5 mg PO DAILY PRN Anxiety #30 10/10/21 12/17/21 Rx tabs epinephrine 0.3 mg/0.3 mL 0.3 mg (0.3 mL) IM Q4H PRN 10/28/21 12/17/21 Rx injection, auto-injector anaphylaxis #1 ea acetaminophen 500 mg tablet 1,000 mg PO DIRECTED PRN 12/17/21 12/17/21 History (Tylenol Extra Strength) FEVER/PAIN famotidine 20 mg tablet 20 mg PO BID PRN Indigestion 12/17/21 12/17/21 History fluticasone propionate 50 See Rx Instructions intranasal BID 12/17/21 12/17/21 History mcg/actuation nasal PRN ALLERGY SEASON spray,suspension (Flonase Allergy Relief) Past Med/Surg History Medical History (Updated 12/18/21 @ 03:46 by Kole Stiles MD) Anxiety Family history of gastric cancer History of colon polyps History of endometriosis PONV (postoperative nausea and vomiting) Surgical History History of arthroscopy of left shoulder History of arthroscopy of right knee History of colonoscopy History of hysteroscopy History of wisdom tooth extraction Hx of hysterectomy S/P correction of deviated nasal septum Family History Father Deafness Hypertension Cancer Gastric Mother Sinusitis Cancer Slow to wake up after anesthesia Grandfather (Paternal) Colon cancer Denies family history of Ovarian cancer Prostate cancer Myocardial infarction Breast cancer Colorectal cancer Social History Smoking Status: Never smoker Second Hand Exposure: No; Hx Alcohol Use: No Hx Substance Use: No Preferred Language: Estonian Communication Ability: Effective Visual Impairment: No Limitations Hearing Ability: Normal [employer] Required: No Beliefs That Will Affect Care: None marital status: Current Living Situation: Spouse current occupational status: employed current occupation: self employed How many Children do You have: 0 Other Information That Helps Us Care for You: No Feels Safe at Home: Yes Safety Concerns: Feels Safe At This Time Childhood Exposure to Second-Hand Smoke: No Dental Care, Regularly: Yes Physical Activity Frequency: Daily Seatbelt Use: always Sunscreen Use: Yes Assistive Devices: Glasses Review of Systems Review of Systems: The patient denies chest pain, palpitations, shortness of breath, dyspnea on exertion, cough, lower extremity swelling, sore throat, fevers, chills, sweats, blood in urine or stool, dysuria, urinary frequency or urgency, lightheadedness, dizziness, headache, memory loss, loss of consciousness, rash, abnormal bruising or bleeding, imbalance, focal or generalized weakness, numbness or tingling in arms or legs, generalized arthralgias or myalgias, back or neck pain, or night sweats. The review of systems is otherwise negative other than for that already noted above, and at least 10 systems have been reviewed. Physical Exam Physical Exam: The patient is awake, alert and oriented 3, well developed and well nourished, normocephalic and atraumatic, lying in bed and in no acute distress. HEENT--PERRL, EOMI, mucous membranes and oropharynx dry. Neck--supple. No JVD. No bruits. Thyroid normal, trachea midline, no adenopathy. Heart--normal S1 and S2. No murmurs, rubs or gallops. Lungs--clear bilaterally, no respiratory distress, no accessory muscle use. Abdomen--decreased bowel sounds and mildly firm. Generalized tenderness. Nondistended Extremities--no cyanosis or clubbing. No edema. Dermatologic--normal skin turgor, normal color, no abnormal lymph nodes, no rash. Neurologic--cranial nerves II through XII grossly intact. Rheumatologic--normal range of motion. Psychiatric--normal affect. Results & Data Results & Data ([facility]) Vital Signs (Past 12 Hours) Vital Signs Temp Pulse Pulse Resp BP BP Pulse Ox 12/17/21 22:43 96 12/17/21 22:40 66 18 105/67 98 12/17/21 18:57 37 C 78 18 96/51 L 93 O2 Del Method 12/17/21 22:43 Room Air 12/17/21 22:40 Room Air 12/17/21 18:57 Room Air Laboratory Results Laboratory Results WBC 10.69 K/ul (4.8-10.8) 12/17/21 22:30 RBC 4.55 M/uL (3.93-5.22) 12/17/21 22:30 Hgb 13.6 g/dl (12.0-16.0) 12/17/21 22:30 POC Hgb 14.3 g/dl (12.0-16.0) 12/17/21 22:41 Hct 41.0 % (34.1-44.9) 12/17/21 22: POC Hct 42 % (37-47) 12/17/21: MCV 90.1 fL (80.0-100.0) 12/17/21: MCH 29.9 pg (25.0-34.0) 12/17/21: MCHC 33.2 g/dL (32.0-36.0) 12/17/21 RDW Std Deviation 39.5 fL (36.4-46.3) 12/17/21: RDW Coeff of Claudette 11.9 % (11.5-14.5) 12/17/21: Plt Count 286 K/uL (130-400) 12/17/21: MPV 10.3 fL (9.4-12.3) 12/17/21: Immature Gran % (Auto) 0.4 % 12/17/21: Neut % (Auto) 80.6 % 12/17/21: Lymph % (Auto) 13.5 % 12/17/21: [place] % (Auto) 4.2 % 12/17/21: Eos % (Auto) 1.0 % 12/17/21: Baso % (Auto) 0.3 % 12/17/21: Neut # (Auto) 8.62 K/uL (1.4-6.5) H 12/17/21: Lymph # (Auto) 1.44 K/uL (1.2-3.4) 12/17/21: [place] # (Auto) 0.45 K/uL (0.24-0.82) 12/17/21: Eos # (Auto) 0.11 K/uL (0-0.50) 12/17/21: Baso # (Auto) 0.03 K/uL (0-0.2) 12/17/21: Immature Gran # (Auto) 0.04 K/uL (0.00-0.02) H 12/17/21: POC Sodium 142 mmol/L (135-144) 12/17/21: Sodium 139 mmol/L (136-145) 12/17/21 22:30 POC Potassium 3.3 mmol/L (3.3-5.0) 12/17/21 22:41 Potassium 3.3 mmol/L (3.5-5.1) L 12/17/21 22:30 POC Chloride 103 mmol/L (101-112) 12/17/21 22:41 Chloride 103 mmol/L (98-107) 12/17/21 22:30 Carbon Dioxide 28 mmol/L (21-32) 12/17/21 22:30 POC Total CO2 28 mmol/L (24-31) 12/17/21 22:41 Anion Gap 8 (3-11) 12/17/21 22:30 POC Anion Gap 15.0 mmol/L (16-25) L 12/17/21 22:41 POC BUN 7 mg/dl (7-18) 12/17/21 22:41 BUN 8 mg/dl (6-23) 12/17/21 22:30 Creatinine 0.62 mg/dl (0.6-1.2) 12/17/21 22:30 POC Creatinine 0.6 mg/dl (0.6-1.3) 12/17/21 22:41 Est Cr Clr Drug Dosing 96.6 ml/min 12/17/21 22:30 Est GFR ( Amer) 121.0 ml/min 12/17/21 22:30 Est GFR (Non-Af Amer) 104.4 ml/min 12/17/21 22:30 BUN/Creatinine Ratio 12.9 (10-20) 12/17/21 22:30 Glucose 120 mg/dl (70-99(Fasting)) H 12/17/21 22:30 POC Glucose (other) 125 mg/dl (70-99) H 12/17/21 22:41 Calcium 9.1 mg/dl (8.5-10.1) 12/17/21 22:30 POC Ioniz Calcium Panda 1.18 mmol/l (1.12-1.32) 12/17/21 22:41 Total Bilirubin 0.5 mg/dl (0.2-1.0) 12/17/21 22:30 AST 19 U/L (13-39) 12/17/21 22:30 ALT 16 U/L (7-52) 12/17/21 22:30 Alkaline Phosphatase 67 U/L (34-104) 12/17/21 22:30 Total Protein 7.5 gm/dl (6.0-8.3) 12/17/21 22:30 Albumin 4.4 gm/dl (3.4-5.0) 12/17/21 22:30 Globulin 3.1 gm/dl (2.5-4.0) 12/17/21 22:30 Albumin/Globulin Ratio 1.4 (0.9-2) 12/17/21 22:30 Lipase 10 U/L (11-82) L 12/17/21 22:30 Urine Color Yellow 12/18/21 03:08 Urine Appearance Clear (Clear) 12/18/21 03:08 Urine pH 5.0 (4.5-7.5) 12/18/21 03:08 Ur Specific [place] > 1.045 (1.000-1.030) H 12/18/21 03:08 Urine Protein Negative (Negative) 12/18/21 03:08 Urine Glucose (UA) Negative (Negative) 12/18/21 03:08 Urine Ketones 1+ (Negative) H 12/18/21 03:08 Urine Blood Negative (Negative) 12/18/21 03:08 Urine Nitrite Negative (Negative) 12/18/21 03:08 Urine Bilirubin Negative (Negative) 12/18/21 03:08 Urine Urobilinogen Negative (Negative) 12/18/21 03:08 Ur Leukocyte Esterase Negative (Negative) 12/18/21 03:08 SARS-CoV-2, RNA, NAAT POSITIVE (NEGATIVE) A* 12/18/21 00:30 Diagnostic Findings [facility] Patient: RAIN ROBLES (Female) : 70 Status: ER Date: 12/17/21 23:31 Room #: History: LEFT ABD PAIN COVID Slices: [id number] Priors: Jaja: Tom Cabrera @ [phone] Exams: CT ABDOMEN & PELVIS With Contrast Contrast: IV Amt: 92 Accession Numbers: [id number] Referring Physician: REFERRED SELF Preliminary Findings Only See Final Report For Complete Findings CT ABDOMEN & PELVIS With Contrast: Dilated small bowel loops measure up to 3.1 cm in the left abdomen with a collapsed appearance of distal loops. Findings compatible with a high-grade small bowel obstruction potentially related to adhesions. Small pelvic fluid is likely associated with the suspected small bowel obstruction Appendix not definitely visualized. If right lower quadrant symptoms are present and oral contrast enhanced study could be performed for further evaluation Radiologist: Skip Garcia MD Study ready at 23:34 and initial results transmitted at 23:38 *This report constitutes a preliminary interpretation only. Non-acute findings felt to be unrelated to the clinical presentation may not be discussed in this report. The study will be interpreted and a final report will be generated by the local Radiologist the following shift. To reach the [facility] radiology department call [phone]. If a discrepancy is found between the preliminary and final interpretations of this study, please notify us via our Client Portal at [email or web address], under QA Exams. You can also fax this report with a description of the discrepancy, or include the final report, to our daytime fax number [phone]. If faxing, please indicate the severity of discrepancy using one of the following categories: [ ] 1 - Agree/Informational [ ] 2 - Unlikely to Affect Management [ ] 3 - Possible Eventual Change of Management [ ] 4 - Probable Immediate Change of Management For all other patient related information, please fax us at [phone]. Code Status & VTE Plan Code Status Full code VTE Prophylaxis Plan VTE Prophylaxis will be ordered: Yes PG Care Time/CCT Total # of Minutes Spent Total Time Spent with Patient: Total time spent is greater than 50% in coordination of care (as documented) at patient's floor/unit and/or counseling patient: Coding Level of Care Code 03126 Initial Inpt Care Lvl 2 Diagnoses SBO (small bowel obstruction) K56.609 Endometriosis N80.9 Anxiety F41.9
[2021-12-18] MEDS: ONDANSETRON INJ 2 MG/ML 2 ML VIAL IV PRN ×2 (02:53→12:46)
[2021-12-18] MEDS ORDERED: PIPERACILLIN/TAZOBACTAM 4.5 GM in DEXTROSE 5% 100 ML IV ONE (03:00)
[2021-12-18 03:26] LABS: Appearance Urine Clear (Clear); Bilirubin Urine Negative (Negative); Blood Urine Negative (Negative); Color Urine Yellow; Glucose Urine UA Negative (Negative); Ketones Urine 1+ (Negative); Leukocyte Esterase Urine Negative (Negative); Nitrite Urine Negative (Negative); Protein Urine Negative (Negative); Specific Gravity Urine > 1.045 (1.000-1.030); Urobilinogen Urine Negative (Negative)
[2021-12-18] MEDS: FAMOTIDINE 20 MG in SYRINGE 3 ML IV SCH ×2 (03:41→17:51)
[2021-12-18] MEDS: LACTATED RINGER'S 1,000 ML IV SCH ×3 (03:41→17:51)
[2021-12-18] MEDS ORDERED: ACETAMINOPHEN 1,000 MG/100 ML VIAL IV PRN (03:47)
[2021-12-18] MEDS ORDERED: LORazepam 2 MG/1 ML VIAL IV PRN (03:50)
[2021-12-18] MEDS ORDERED: LORazepam 0.5 MG in SYRINGE 0.25 ML IV PRN (04:59)
[2021-12-18] MEDS ORDERED: PIPERACILLIN/TAZOBACTAM 3.375 GM in DEXTROSE 5% 100 ML IV SCH (08:00)
--- NOTE | 2021-12-18 09:25 | CT Scan Report ---
ABDOMEN AND PELVIS CT WITH IV CONTRAST CT DOSE: 273.28 mGy.cm HISTORY: Acute left-sided abdominal pain left abd pain, recent covid TECHNIQUE: Multiaxial CT images of the abdomen and pelvis were performed following the IV administrat ion of cc of Optiray, A dose lowering technique was utilized adhering to the principles of ALARA. COMPARISON STUDY: CT abdomen pelvis 06/19/2015 FINDINGS: The imaged inferior cardiac chambers are unremarkable. Trace pericardial effusion. There ar e a few solid nodules noted within the lung bases measuring up to 4 mm which appear stable and are li karin benign. No pneumatosis or pneumoperitoneum. Unremarkable spleen, pancreas, gallbladder, adrenal glands and mildly enlarged liver. There is patency of the hepatic and portal veins. Unremarkable kidneys without hydronephrosis. The urinary bladder is within normal limits. There is no abdominal aortic aneurysm. No lymphadenopathy. Unremarkable IVC. There are numerous dilated air and fluid-filled and stool-filled loops of small bowel within the abdo men and pelvis measuring up to approximately 3.3 cm. Trace free pelvic fluid. Transition point involv ing a loop of ileum within the anterior pelvis on image 283 with decompressed loops seen distally. Mi ld wall thickening at the transition point. Mild interloop edema is noted. Mild colonic diverticulosi s. Moderate fecal retention. The visualized appendix appears noninflamed within the abdominal right l ower quadrant. Unremarkable soft tissues. There is no acute fracture. IMPRESSION: 1. Small bowel obstruction, intermediate to high-grade with transition point within the anterior pelv is, presumably related to small bowel adhesions. 2. Mild associated interloop edema with trace free pelvic fluid. No pneumoperitoneum. 3. Moderate fecal retention. ACT 112: Negative or not required by law. The above report was generated using voice recognition software. It may contain grammatical, syntax o r spelling errors. Electronically signed by: Wilfredo Neves M.D. 12/18/2021 9:23 AM
--- NOTE | 2021-12-18 09:43 | Surgery Consultation ---
Date of Consultation December 18, 2021 Assessment & Plan (1) SBO (small bowel obstruction): Improved with bowel rest and hydration. No acute abdominal findings, continue current management. NPO for today, may consider clears tomorrow if continues to improve. Supervising Physician Co-Signing Physician Notes I personally saw and evaluated the patient with Suraj Carter PA-C and agree with the assessment and plan. 51-year-old female with likely adhesive small bowel obstruction CT images and results personally viewed by me Has been admitted to the medical service Keep her n.p.o. for today, she is feeling much better with minimal abdominal pain and no nausea or vomiting at this point Her labs are all within normal limits and has no signs of mesenteric ischemia on exam We will continue to follow her with serial abdominal exams and if she does not open up the next few days she may require exploration History of Present Illness Attending Physician: Pedro Camacho, History of Present Illness 51 y/o female tested positive for COVID eight days ago, 12/10. Two days later she had some vague abdominal pain that resolved rather quickly. Yesterday she had more pain, bloating and N/V x7. Had BM yesterday, no flatus or BM today but no further N/V and pain improved since admission overnight. Does not have NG. Had robotic hysterectomy around 2014, also noted to have significant endometriosis at that time. Allergies Allergy/AdvReac Type Severity Reaction Status Date / Time bee venom protein (honey bee) Allergy Severe SWELLING Verified 12/17/21 23:35 clarithromycin [From Biaxin] AdvReac Intermediate elevated Verified 12/17/21 23: 35 LFTs lactase [From Dairy Aid] AdvReac Intermediate Gastrointestinal Verified 12/17/21 23:35 Upset Serotonin 5HT-3 Antagonists AdvReac Intermediate SEROTONIN Verified 12/17/21 23:35 SYNDROME venlafaxine AdvReac Intermediate HEART Verified 12/17/21 23:35 ARRYHTHMIA Home Medications Medication Instructions Recorded Confirmed Type multivitamin (Daily Multi-Vitamin) 1 tab PO QAM 12/06/19 12/17/21 History omega 0-uiw-iog-fish oil 1,000 mg 1 cap PO DAILY 09/12/21 12/17/21 History (120 mg-180 mg) capsule (Fish Oil) clonazepam 0.5 mg tablet 0.5 mg PO DAILY PRN Anxiety #30 05/26/22 08/02/22 Rx tabs epinephrine 0.3 mg/0.3 mL 0.3 mg (0.3 mL) IM Q4H PRN 10/28/21 12/17/21 Rx injection, auto-injector anaphylaxis #1 ea acetaminophen 500 mg tablet 1,000 mg PO DIRECTED PRN 12/17/21 12/17/21 History (Tylenol Extra Strength) FEVER/PAIN famotidine 20 mg tablet 20 mg PO BID PRN Indigestion 12/17/21 12/17/21 History fluticasone propionate 50 See Rx Instructions intranasal BID 12/17/21 12/17/21 History mcg/actuation nasal PRN ALLERGY SEASON spray,suspension (Flonase Allergy Relief) Patient History Medical History Anxiety Family history of gastric cancer History of colon polyps History of endometriosis PONV (postoperative nausea and vomiting) Surgical History History of arthroscopy of left shoulder History of arthroscopy of right knee History of colonoscopy History of hysteroscopy History of wisdom tooth extraction Hx of hysterectomy S/P correction of deviated nasal septum Family History Father Deafness Hypertension Cancer Gastric Mother Sinusitis Cancer Slow to wake up after anesthesia Grandfather (Paternal) Colon cancer Denies family history of Ovarian cancer Prostate cancer Myocardial infarction Breast cancer Colorectal cancer Social History Smoking Status: Never smoker Second Hand Exposure: No; Hx Alcohol Use: No Hx Substance Use: No Preferred Language: Chadian Communication Ability: Effective Visual Impairment: No Limitations Hearing Ability: Normal Horse Race Timer Required: No Beliefs That Will Affect Care: None marital status: Current Living Situation: Spouse current occupational status: employed current occupation: self employed How many Children do You have: 0 Other Information That Helps Us Care for You: No Feels Safe at Home: Yes Safety Concerns: Feels Safe At This Time Childhood Exposure to Second-Hand Smoke: No Dental Care, Regularly: Yes Physical Activity Frequency: Daily Seatbelt Use: always Sunscreen Use: Yes Assistive Devices: Glasses Review of Systems Constitutional: no fever (past 3 days) Gastrointestinal: + abdominal pain, + bloating, + nausea and + vomiting; no change in bowel habits Physical Exam Constitutional: WD/WN, vitals as above Respiratory: normal respiratory effort Gastrointestinal (Abdomen): Inspection/Auscultation: + abdomen distended (minimal) and + abdominal surgical scar Percussion/Palpation: + abdomen tender (minimal) and abdomen soft; no guarding Results & Data ([facility]) Vital Signs (Past 12 Hours) Vital Signs Temp Pulse Pulse Resp BP BP Pulse Ox 12/18/21 08:09 36.7 C 68 16 96/58 L 98 12/18/21 02:46 36.5 C 54 L 16 97/57 L 99 12/18/21 02:36 106/70 12/18/21 02:00 116/65 12/17/21 22:43 96 12/17/21 22:40 66 18 105/67 98 O2 Del Method 12/18/21 08:09 Room Air 12/18/21 02:46 Room Air 12/18/21 02:36 12/18/21 02:00 12/17/21 22:43 Room Air 12/17/21 22:40 Room Air PG Care Time/CCT Total # of Minutes Spent Total Time Spent with Patient: Total time spent is greater than 50% in coordination of care (as documented) at patient's floor/unit and/or counseling patient: Coding Level of Care Code 84315 Inpt Consult Level 3 Diagnoses SBO (small bowel obstruction) K56.609
--- NOTE | 2021-12-18 17:27 | Hospitalist Progress Note ---
Date of Service December 18, 2021 Assessment & Plan (1) SBO (small bowel obstruction): Plan: Small bowel obstruction- Highly likely adhesional. Improving nicely. Continue IV fluids, pain control, supportive care. Given her rather significant improvement in symptomswe will give clear liquidsencouraged her to go slow/with caution. (2) Endometriosis: Plan: Could be contributing to the scar tissue as well, but does not appear in any way to change acute management (3) Anxiety: Plan: On clonazepam as outpatient Lorazepam 0.5 mg IV twice daily as needed (4) Lab test positive for detection of COVID-19 virus: Plan: Onset of symptoms was around December 10noted mild symptoms at worst, finished a course of paxlovid and symptoms have been gone since (5) DVT prophylaxis: Plan: Ambulation Admission and Anticipated Discharge Date Admission Date: December 18, 2021 Subjective Belly is feeling better. A lot less pain, almost none. Nausea basically gone. Does feel a little bit hungry. Voiding well. Did pass some flatus. Review of Systems Review of Systems: All systems reviewed & are unremarkable except as noted in HPI & below Physical Exam Physical Exam: In general she is awake and alert pleasant no distress. HEENT normocephalic atraumatic mucous membranes moist. Breathing unlabored no accessory muscle use good effort. Skin shows no rashes no pallor or icterus. Abdomen is soft very mild tenderness no guarding rebound or rigiditytenderness fairly diffuse in focalitybut very very minor in severity. No masses organomegaly. Neuro without focal deficits. Results & Data Results & Data ([facility]) Vital Signs (Past 12 Hours) Vital Signs Temp Pulse Resp BP Pulse Ox O2 Del Method 12/18/21 15:50 97.9 F 68 16 94/59 L 98 Room Air 12/18/21 08:09 98.1 F 68 16 96/58 L 98 Room Air PG Care Time/CCT Total # of Minutes Spent Total Time Spent with Patient: Total time spent is greater than 50% in coordination of care (as documented) at patient's floor/unit and/or counseling patient: Coding Level of Care Code None Diagnoses SBO (small bowel obstruction) K56.609 Endometriosis N80.9 Anxiety F41.9 Lab test positive for detection of COVID-19 virus U07.1 DVT prophylaxis Z29.9
[2021-12-19] MEDS: LACTATED RINGER'S 1,000 ML IV SCH ×2 (01:56→10:01)
[2021-12-19] MEDS: FAMOTIDINE 20 MG in SYRINGE 3 ML IV SCH (05:59)
--- NOTE | 2021-12-19 08:47 | Surgery Progress Note ---
Date of Service December 19, 2021 Assessment & Plan (1) SBO (small bowel obstruction): Plan: She is doing better at this point and tolerating clear liquids with some return of bowel function Would advance her diet as tolerated and can possibly discharge her later today versus tomorrow if she tolerates We will continue to follow Admission and Anticipated Discharge Date Admission Date: December 18, 2021 Subjective Patient seen and examined. She had a bowel movement yesterday evening and states she is passing flatus this morning. Denies any nausea or vomiting. Minimal abdominal pain. Review of Systems Constitutional: no fever and no chills Physical Exam Constitutional: WD/WN, vitals as above Gastrointestinal (Abdomen): Inspection/Auscultation: abdomen normal to inspection; abdomen not distended Percussion/Palpation: abdomen soft; abdomen nontender and no guarding Results & Data ([facility]) Vital Signs (Past 12 Hours) Vital Signs Temp Pulse Resp BP Pulse Ox O2 Del Method 12/19/21 08:02 Room Air 12/19/21 07:48 36.7 C 60 15 109/55 L 95 Room Air 12/18/21 21:31 37 C 67 16 103/69 99 Room Air PG Care Time/CCT Total # of Minutes Spent Total Time Spent with Patient: Total time spent is greater than 50% in coordination of care (as documented) at patient's floor/unit and/or counseling patient: Coding Level of Care Code 89646 Subseq Hosp Care Lvl 1 Diagnoses SBO (small bowel obstruction) K56.609
[2021-12-19 09:04] LABS: BUN Creatinine Ratio 10.5 (10-20); Calcium 8.8 mg/dl (8.5-10.1); Creatinine Clr Calc Pharmacy 105.1 ml/min; Est GFR (African American) 124.4 ml/min; Est GFR (Non-African American) 107.3 ml/min; Potassium 3.6 mmol/L (3.5-5.1)
--- NOTE | 2021-12-19 16:09 | Discharge Summary ---
Date of Service December 19, 2021 Admission HPI Per Admitting Provider The patient is a 51-year-old female with a past medical history including colon polyps, Lyme disease, hysterectomy, anxiety and endometriosis. She presents to the emergency department with symptoms as noted above. CT scan of abdomen and pelvis was consistent with a high-grade small bowel obstruction secondary to adhesions. Abnormal laboratories: Potassium 3.3, glucose 120, WBC 10.69 Principal Diagnosis Small bowel obstructionalmost certainly adhesional Discharge Exam In general she is awake and alert pleasant no distress. HEENT normocephalic atraumatic mucous membranes moist. Breathing unlabored no accessory muscle use good effort. Skin shows no rashes no pallor or icterus. Neuro without focal deficits. Abdomen is soft nondistended nontender no masses organomegaly. No guarding rebound or rigidity. Discharge Data Allergies Allergy/AdvReac Type Severity Reaction Status Date / Time bee venom protein (honey bee) Allergy Severe SWELLING Verified 12/17/21 23:35 clarithromycin [From Biaxin] AdvReac Intermediate elevated Verified 12/17/21 23:35 LFTs lactase [From Dairy Aid] AdvReac Intermediate Gastrointestinal Verified 12/17/21 23:35 Upset Serotonin 5HT-3 Antagonists AdvReac Intermediate SEROTONIN Verified 12/17/21 23:35 SYNDROME venlafaxine AdvReac Intermediate HEART Verified 12/17/21 23:35 ARRYHTHMIA gluten AdvReac Unknown Unknown Verified 12/19/21 09:04 lactose AdvReac Unknown Unknown Verified 12/19/21 09:04 Consultations 12/18/21 00:42 ED Decision to Admit Stat 12/18/21 06:35 Consult General Surgery Routine Ordered Studies 12/17/21 22:22 CT abd pelvis IV con only Urgent Hospital Course (1) SBO (small bowel obstruction): Small bowel obstruction- Highly likely adhesional. Improving nicely. Now tolerating regular diet. Safe/stable for home. (2) Endometriosis: Could be contributing to the scar tissue as well, but does not appear in any way to change acute management (3) Anxiety: On clonazepam as outpatientcontinue home meds on discharge (4) Lab test positive for detection of COVID-19 virus: Onset of symptoms was around December 10noted mild symptoms at worst, finished a course of paxlovid and symptoms have been gone since (5) DVT prophylaxis: Ambulation was utilized during her stay Total Time Total Time Spent Total Time Spent (In Minutes): Less than 30 Discharge Plan Discharge Items Patient Disposition: Home - Self-Care Reason For Visit: HIGH GRADE SBO Discharge Diagnosis: Small bowel obstructionresolved Condition on Discharge: Good Activity: Resume your previous activity Non-emergency contact: Primary Care Provider Call non-emergency contact if: you have any medication questions and your sympt oms worsen Follow-up/Referrals: Jeannie Thurman CRNP [Primary Care Provider] - Diet: Regular Addtl Attending Provider Instructions: Small bowel obstruction -As we discussed, this generally occurs whenever a part of your small intestines gets "kinked" around a band of scar tissue. Because your intestines are constantly jason and moving, while the obstruction occurs when the intestines "wiggle" their way into a band of scar tissue, most obstructions alleviate themselves as the intestinal contraction moves the intestines free from the scar tissue and things open up. Fortunately this seems to happen with you fairly quickly. -While diet does not cause a bowel obstruction, often for the first few days as you are recovering it is easier to tolerate simple foods (low fiber, higher in carbsgenerally stuff that overall is not the best to eat, but is very easy to digest. Again to be clearthis is not because high-fiber foods cause a bowel obstruction, as much is just low fiber and simple foods are easier on your intestines as they recover). -As we discussed, this is something that can happen again, but for most people it is very infrequent if at all. Pending Studies at Discharge: No Stand-Alone Forms: My [facility], Smoking Cessation Medications and DC Order Prescriptions: Continued clonazepam 0.5 mg tablet 0.5 mg PO DAILY PRN (Reason: Anxiety) Qty: 30 0RF epinephrine 0.3 mg/0.3 mL auto-injector 0.3 mg IM Q4H PRN (Reason: anaphylaxis) Qty: 1 0RF omega 2-iuy-upm-fish oil [Fish Oil] 1,000 mg (120 mg-180 mg) capsule 1 cap PO DAILY multivitamin [Daily Multi-Vitamin] Tablet 1 tab PO QAM acetaminophen [Tylenol Extra Strength] 500 mg Tablet 1,000 mg PO DIRECTED PRN (Reason: FEVER/PAIN) famotidine 20 mg tablet 20 mg PO BID PRN (Reason: Indigestion) fluticasone propionate [Flonase Allergy Relief] 50 mcg/actuation spray,suspension See Rx Instructions intranasal BID PRN (Reason: ALLERGY SEASON) Rx Instructions: 1-2 sprays in each nostril twice a day Discharge Orders: Discharge Order (Routine); Ordered 12/19/21 Ordered By: Pedro Catherine/Other Patient Handouts: Small Bowel Obstruction, Low-Fiber Diet Admission Data Admit Date/Time: 12/18/21 00:39 Attending Provider: Pedro Camacho Admit Provider: Kole Stiles Primary Care Provider: Jeannie Thurman Other Providers: Kole Stiles ; Reynaldo Noyola ; Aminta Eid Other Interventions: Discharge Summary Assessment (RN) Last Done: 12/19/21 17:54 Coding Level of Care Code D/C DAY MANAGEMENT <30 MINS Diagnoses SBO (small bowel obstruction) K56.609 Endometriosis N80.9 Anxiety F41.9 Lab test positive for detection of COVID-19 virus U07.1 DVT prophylaxis Z29.9
== END 2021-12-19 18:39 | disposition home or self-care (01) | DRG 388 ==
LOC: ED 18:34 → 3W 12-18 00:39 → SUATTDRO 12-18 00:39 → 3W 12-18 02:36
DX: K56.50 Intestinal adhesions [bands], unspecified as to partial versus complete obstruction; Z88.1 Allergy status to other antibiotic agents; U07.1 COVID-19; N80.9 Endometriosis, unspecified; Z90.710 Acquired absence of both cervix and uterus